=== PATIENT | female | born 1940 | race Caucasian/White ===

== ENCOUNTER 2020-11-10 16:32 | Inpatient (IN) | payer MEDICARE ==
[~2020-11-10] VITALS: Ht 149.9 cm; Wt 40.4 kg
[~2020-11-10 16:32] MED LIST: ATENOLOL25 MG PO; LUNESTA1 MG PO; METRONIDAZOLE250 MG PO; PRILOSEC20 MG PO; PROMETHAZINE12.5 M1 PO; PROZAC PO; WELLBUTRIN PO
[2020-11-10 17:11] LABS: BASOPHILS # (AUTO) 0.1 (0.0-0.1); BASOPHILS % 0.5 % (0.0-1.0); EOSINOPHILS # (AUTO) 0.6 (0.0-0.4); EOSINOPHILS % 5.3 % (0.0-6.0); HEMATOCRIT 34.3 % (34.2-44.1); HEMOGLOBIN 11.3 g/dL (12.0-16.0); LYMPHOCYTES # (AUTO) 0.9 (1.0-3.2); LYMPHOCYTES % 8.3 % (18.0-39.1); MEAN CORPUSCULAR HEMOGLOBIN 28.6 pg (28-32); MEAN CORPUSCULAR HGB CONC 32.9 g/dL (31-35); MEAN CORPUSCULAR VOLUME 86.8 fL (81-99); MONOCYTES % 8.7 % (4.4-11.3); NEUTROPHILS # (AUTO) 8.6 (2.1-6.9); NEUTROPHILS % 76.7 % (38.7-80.0); PLATELET COUNT 569 x10e3/uL (140-360); RED BLOOD COUNT 3.95 x10e6/uL (3.6-5.1); RED CELL DISTRIBUTION WIDTH 13.3 % (11.7-14.4)
[2020-11-10 18:30] LABS: ALBUMIN 2.5 g/dL (3.5-5.0); BILIRUBIN,DIRECT 0.2 mg/dL (0.0-0.5)
[2020-11-10 18:35] LABS: ANION GAP 14.5 mmol/L (8-16); CALCIUM 7.9 mg/dL (8.4-10.2); CREATININE, SERUM 0.6 mg/dL (0.57-1.11); POTASSIUM 4.5 mmol/L (3.5-5.1)
[2020-11-10] MEDS ORDERED: SODIUM CHLORIDE 0.9% 50ML 50 ML ONE (19:27)
[2020-11-10] MEDS ORDERED: IOPAMIDOL 370 MG/ML 200 ML INFUS..BTL INJ ONE (19:27)
[2020-11-10 20:31] LABS: COLOR,URINE YELLOW (YELLOW); LEUKOCYTE ESTERASE ,URINE NEGATIVE (NEGATIVE); NITRITE,URINE NEGATIVE (NEGATIVE)
[2020-11-10 20:32] LABS: CLARITY,URINE CLEAR (CLEAR); KETONES,URINE NEGATIVE (NEGATIVE); PROTEIN,URINE DIPSTICK NEGATIVE (NEGATIVE); URINE UROBILINOGEN 0.2 mg/dL (0.2 - 1)
[2020-11-10 20:44] LABS: EPITHELIAL CELLS,URINE RARE /LPF; RBC,URINE 0-5 /HPF (0-5)
[2020-11-10] MEDS ORDERED: DOXYCYCLINE HY100 MG PO (20:53)
[2020-11-10] MEDS ORDERED: CEFTRIAXONE 1 GM in SODIUM CHLORIDE 0.9% 50ML 50 ML IV ONE (21:45)
[2020-11-10] MEDS ORDERED: METHYLPREDNISOLONE SOD SUCC 125 MG/2ML VIAL IV ONE (21:45)
[2020-11-10 22:00] LABS: CREATINE KINASE MB 2.8 ng/mL (0-5.0)
[2020-11-10] MEDS: ALBUTEROL/IPRATROPIUM 3 ML NEB NEB SCH (22:00)
[2020-11-11] VITALS (11 sets, daily range): BP systolic 136–184; BP diastolic 75–101
[2020-11-11] MEDS: ALBUTEROL/IPRATROPIUM 3 ML NEB NEB SCH ×2 (01:26→08:35)
[2020-11-11] MEDS ORDERED: LORAZEPAM INJ 2 MG/ML VIAL IV PRN ×2 (05:45→10:45)
[2020-11-11 07:59] LABS: BASOPHILS # (AUTO) 0.1 (0.0-0.1); BASOPHILS % 0.4 % (0.0-1.0); EOSINOPHILS # (AUTO) 0.3 (0.0-0.4); EOSINOPHILS % 1.9 % (0.0-6.0); HEMATOCRIT 33.5 % (34.2-44.1); HEMOGLOBIN 11.1 g/dL (12.0-16.0); LYMPHOCYTES # (AUTO) 0.8 (1.0-3.2); LYMPHOCYTES % 6.1 % (18.0-39.1); MEAN CORPUSCULAR HEMOGLOBIN 28.6 pg (28-32); MEAN CORPUSCULAR HGB CONC 33.1 g/dL (31-35); MEAN CORPUSCULAR VOLUME 86.3 fL (81-99); MONOCYTES # (AUTO) 1.2 (0.2-0.8); MONOCYTES % 8.6 % (4.4-11.3); NEUTROPHILS # (AUTO) 11.1 (2.1-6.9); NEUTROPHILS % 82.5 % (38.7-80.0); PLATELET COUNT 613 x10e3/uL (140-360); RED BLOOD COUNT 3.88 x10e6/uL (3.6-5.1); RED CELL DISTRIBUTION WIDTH 13.2 % (11.7-14.4)
[2020-11-11 08:21] LABS: ALBUMIN 2.6 g/dL (3.5-5.0); ALBUMIN/GLOBULIN RATIO 0.8 (0.8-2.0); CALCIUM 8.9 mg/dL (8.4-10.2); CREATININE, SERUM 0.55 mg/dL (0.57-1.11)
[2020-11-11 08:29] LABS: CREATINE KINASE MB 2.9 ng/mL (0-5.0)
[2020-11-11 08:44] LABS: POTASSIUM 3.6 mmol/L (3.5-5.1)
[2020-11-11 08:47] LABS: ANION GAP 14.6 mmol/L (8-16)
[2020-11-11] MEDS ORDERED: POLYETHYLENE GLYCOL 3350 17 GM PACK PO PRN (11:30)
[2020-11-11] MEDS ORDERED: ONDANSETRON HCL INJ 2MG/ML 2ML 2 MG/ML VIAL IV PRN (11:30)
[2020-11-11] MEDS ORDERED: CEFTRIAXONE 1 GM in SODIUM CHLORIDE 0.9% 50ML 50 ML IV SCH (11:45)
[2020-11-11] MEDS ORDERED: PIPERACILLIN/TAZOBACTAM 3.375 GM in SODIUM CHLORIDE 0.9% 50ML 50 ML IV SCH (12:00)
[2020-11-11] MEDS ORDERED: SODIUM CHLORIDE 0.9% 250ML 250 ML ONE (12:04)
[2020-11-11] MEDS: ALBUTEROL/IPRATROPIUM 3 ML NEB NEB PRN ×2 (13:15→20:00)
[2020-11-11] MEDS ORDERED: Vancomycin IV 750 MG in SODIUM CHLORIDE 0.9% 250ML 150 ML IV SCH (14:00)
[2020-11-11] MEDS: CEFEPIME 1 GM in SODIUM CHLORIDE 0.9% 50ML 50 ML IV SCH ×2 (14:00→22:37)
[2020-11-11 15:19] LABS: CREATINE KINASE MB 3.4 ng/mL (0-5.0)
[2020-11-11] MEDS: Vancomycin IV 750 MG in SODIUM CHLORIDE 0.9% 250ML 150 ML IV SCH (15:30)
[2020-11-11] MEDS: SODIUM CHLORIDE 0.9% 1000ML 1,000 ML IV SCH (15:30)
[2020-11-11] MEDS: DOCUSATE SODIUM 100 MG CAP PO SCH (15:30)
[2020-11-11] MEDS ORDERED: PROBIOTIC & AC1 EACH PO (17:16)
[2020-11-11] MEDS ORDERED: MYRBETRIQ25 MG (17:18)
[2020-11-11] MEDS ORDERED: NEURONTIN100 MG PO (17:19)
[2020-11-11] MEDS ORDERED: MULTI-VITAMIN1 EACH PO (17:20)
[2020-11-11] MEDS ORDERED: BUPROPION HCL150 M2 PO (17:22)
[2020-11-11] MEDS ORDERED: CALCIUM MAGNES1 EAC2 (17:24)
[2020-11-11] MEDS ORDERED: AMIODARONE HCL100 MG PO (17:26)
[2020-11-11] MEDS ORDERED: BENZONATATE100 MG PO (17:26)
[2020-11-11] MEDS ORDERED: CETIRIZINE HCL10 M1 (17:27)
[2020-11-11] MEDS: QUETIAPINE FUMARATE 25 MG TAB PO SCH (22:00)
[2020-11-12] VITALS (7 sets, daily range): BP systolic 135–167; BP diastolic 60–91
[2020-11-12] MEDS: Vancomycin IV 750 MG in SODIUM CHLORIDE 0.9% 250ML 150 ML IV SCH ×2 (02:10→16:27)
[2020-11-12] MEDS: ALBUTEROL/IPRATROPIUM 3 ML NEB NEB PRN ×4 (03:02→19:35)
[2020-11-12 05:17] LABS: BASOPHILS # (AUTO) 0.1 (0.0-0.1); BASOPHILS % 0.4 % (0.0-1.0); EOSINOPHILS # (AUTO) 0.1 (0.0-0.4); HEMATOCRIT 32.1 % (34.2-44.1); HEMOGLOBIN 10.6 g/dL (12.0-16.0); LYMPHOCYTES # (AUTO) 0.9 (1.0-3.2); LYMPHOCYTES % 7.4 % (18.0-39.1); MEAN CORPUSCULAR HEMOGLOBIN 28.5 pg (28-32); MEAN CORPUSCULAR VOLUME 86.3 fL (81-99); MONOCYTES # (AUTO) 1.3 (0.2-0.8); MONOCYTES % 10.7 % (4.4-11.3); NEUTROPHILS # (AUTO) 9.8 (2.1-6.9); PLATELET COUNT 536 x10e3/uL (140-360); RED BLOOD COUNT 3.72 x10e6/uL (3.6-5.1); RED CELL DISTRIBUTION WIDTH 13.1 % (11.7-14.4)
[2020-11-12] MEDS: CEFEPIME 1 GM in SODIUM CHLORIDE 0.9% 50ML 50 ML IV SCH ×3 (05:41→22:01)
[2020-11-12 05:47] LABS: ALBUMIN 2.4 g/dL (3.5-5.0); ALBUMIN/GLOBULIN RATIO 0.8 (0.8-2.0); ANION GAP 13.9 mmol/L (8-16); CALCIUM 8.3 mg/dL (8.4-10.2); CHOL/HDL RATIO 2.7 (3.0-3.6); CREATININE, SERUM 0.47 mg/dL (0.57-1.11); MAGNESIUM 1.5 MG/DL (1.3-2.1); PHOSPHORUS 2.6 MG/DL (2.3-4.7)
[2020-11-12 05:48] LABS: POTASSIUM 2.9 mmol/L (3.5-5.1)
[2020-11-12 06:09] LABS: THYROID STIMULATING HORMONE 1.613 uIU/mL (0.350-4.940)
[2020-11-12] MEDS: OMEPRAZOLE 20 MG CAP PO SCH (09:00)
[2020-11-12] MEDS: DOCUSATE SODIUM 100 MG CAP PO SCH ×2 (09:00→17:00)
[2020-11-12] MEDS: POTASSIUM CHLORIDE 10MEQ/100ML 100 ML IV SCH ×4 (09:03→13:59)
[2020-11-12] MEDS: HYDRALAZINE HCL 20 MG/ML VIAL IV PRN (13:01)
[2020-11-12] MEDS: SODIUM CHLORIDE 0.9% 1000ML 1,000 ML IV SCH (18:55)
[2020-11-12] MEDS: QUETIAPINE FUMARATE 25 MG TAB PO SCH (22:01)
[2020-11-13] VITALS (8 sets, daily range): BP systolic 128–162; BP diastolic 59–95
[2020-11-13] MEDS: Vancomycin IV 750 MG in SODIUM CHLORIDE 0.9% 250ML 150 ML IV SCH ×2 (03:19→13:45)
[2020-11-13] MEDS: CEFEPIME 1 GM in SODIUM CHLORIDE 0.9% 50ML 50 ML IV SCH ×3 (05:28→21:02)
[2020-11-13] MEDS: ALBUTEROL/IPRATROPIUM 3 ML NEB NEB PRN ×3 (07:11→19:45)
[2020-11-13] MEDS: DOCUSATE SODIUM 100 MG CAP PO SCH ×2 (08:17→16:25)
[2020-11-13] MEDS: OMEPRAZOLE 20 MG CAP PO SCH (08:17)
[2020-11-13] MEDS: HYDRALAZINE HCL 20 MG/ML VIAL IV PRN (08:18)
[2020-11-13] MEDS: SODIUM CHLORIDE 0.9% 1000ML 1,000 ML IV SCH (16:25)
[2020-11-13] MEDS: ACETAMINOPHEN 325 MG TAB PO PRN (16:30)
[2020-11-13] MEDS: QUETIAPINE FUMARATE 25 MG TAB PO SCH (21:01)
[2020-11-14] VITALS (9 sets, daily range): BP systolic 101–165; BP diastolic 60–77
[2020-11-14] MEDS: Vancomycin IV 750 MG in SODIUM CHLORIDE 0.9% 250ML 150 ML IV SCH ×2 (02:20→14:00)
[2020-11-14] MEDS: CEFEPIME 1 GM in SODIUM CHLORIDE 0.9% 50ML 50 ML IV SCH ×3 (05:05→22:18)
[2020-11-14 05:29] LABS: BASOPHILS % 0.4 % (0.0-1.0); EOSINOPHILS # (AUTO) 0.8 (0.0-0.4); EOSINOPHILS % 7.4 % (0.0-6.0); HEMATOCRIT 30.1 % (34.2-44.1); HEMOGLOBIN 10.4 g/dL (12.0-16.0); LYMPHOCYTES # (AUTO) 0.4 (1.0-3.2); LYMPHOCYTES % 3.9 % (18.0-39.1); MEAN CORPUSCULAR HEMOGLOBIN 29.5 pg (28-32); MEAN CORPUSCULAR HGB CONC 34.6 g/dL (31-35); MEAN CORPUSCULAR VOLUME 85.5 fL (81-99); MONOCYTES % 8.9 % (4.4-11.3); NEUTROPHILS # (AUTO) 8.6 (2.1-6.9); NEUTROPHILS % 78.8 % (38.7-80.0); PLATELET COUNT 507 x10e3/uL (140-360); RED BLOOD COUNT 3.52 x10e6/uL (3.6-5.1); RED CELL DISTRIBUTION WIDTH 13.3 % (11.7-14.4)
[2020-11-14 06:06] LABS: ALBUMIN/GLOBULIN RATIO 0.7 (0.8-2.0); ANION GAP 17.7 mmol/L (8-16); CALCIUM 8.1 mg/dL (8.4-10.2); CREATININE, SERUM 0.45 mg/dL (0.57-1.11)
[2020-11-14 06:12] LABS: POTASSIUM 2.7 mmol/L (3.5-5.1)
[2020-11-14] MEDS: ALBUTEROL/IPRATROPIUM 3 ML NEB NEB PRN ×3 (07:28→19:36)
[2020-11-14] MEDS: SODIUM CHLORIDE 0.9% 1000ML 1,000 ML IV SCH (08:00)
[2020-11-14] MEDS: OMEPRAZOLE 20 MG CAP PO SCH (09:00)
[2020-11-14] MEDS: DOCUSATE SODIUM 100 MG CAP PO SCH ×2 (09:00→16:47)
[2020-11-14] MEDS ORDERED: POTASSIUM CHLORIDE 10MEQ EA PO ONE (09:00)
[2020-11-14] MEDS: BENZONATATE 100 MG CAP PO PRN (16:48)
[2020-11-14] MEDS: AMLODIPINE BESYLATE 5 MG TAB PO SCH (21:52)
[2020-11-14] MEDS: QUETIAPINE FUMARATE 25 MG TAB PO SCH (21:52)
[2020-11-15] VITALS (9 sets, daily range): BP systolic 104–155; BP diastolic 60–91
[2020-11-15] MEDS: Vancomycin IV 750 MG in SODIUM CHLORIDE 0.9% 250ML 150 ML IV SCH ×2 (02:23→14:00)
[2020-11-15] MEDS: ALBUTEROL/IPRATROPIUM 3 ML NEB NEB PRN ×3 (03:10→19:23)
[2020-11-15] MEDS: CEFEPIME 1 GM in SODIUM CHLORIDE 0.9% 50ML 50 ML IV SCH ×3 (06:14→20:40)
[2020-11-15 06:26] LABS: BASOPHILS # (AUTO) 0.1 (0.0-0.1); BASOPHILS % 0.4 % (0.0-1.0); EOSINOPHILS # (AUTO) 0.8 (0.0-0.4); EOSINOPHILS % 5.9 % (0.0-6.0); HEMATOCRIT 33.5 % (34.2-44.1); HEMOGLOBIN 11.1 g/dL (12.0-16.0); LYMPHOCYTES # (AUTO) 0.7 (1.0-3.2); LYMPHOCYTES % 4.9 % (18.0-39.1); MEAN CORPUSCULAR HEMOGLOBIN 28.5 pg (28-32); MEAN CORPUSCULAR HGB CONC 33.1 g/dL (31-35); MEAN CORPUSCULAR VOLUME 85.9 fL (81-99); MONOCYTES # (AUTO) 1.1 (0.2-0.8); MONOCYTES % 8.4 % (4.4-11.3); NEUTROPHILS # (AUTO) 10.7 (2.1-6.9); NEUTROPHILS % 79.6 % (38.7-80.0); PLATELET COUNT 633 x10e3/uL (140-360); RED CELL DISTRIBUTION WIDTH 13.2 % (11.7-14.4)
[2020-11-15 06:46] LABS: ALBUMIN/GLOBULIN RATIO 0.7 (0.8-2.0); ANION GAP 11.7 mmol/L (8-16); CALCIUM 7.9 mg/dL (8.4-10.2); CREATININE, SERUM 0.46 mg/dL (0.57-1.11)
[2020-11-15 06:52] LABS: POTASSIUM 2.7 mmol/L (3.5-5.1)
[2020-11-15] MEDS ORDERED: POTASSIUM CHLORIDE 20 MEQ TAB CR PO STA (08:23)
[2020-11-15] MEDS ORDERED: POTASSIUM CHLORIDE 20MEQ/100ML 100 ML IV ONE (08:30)
[2020-11-15] MEDS: DOCUSATE SODIUM 100 MG CAP PO SCH ×2 (09:00→16:56)
[2020-11-15] MEDS: AMLODIPINE BESYLATE 5 MG TAB PO SCH (09:00)
[2020-11-15] MEDS: OMEPRAZOLE 20 MG CAP PO SCH (09:00)
[2020-11-15] MEDS ORDERED: MAGNESIUM SULFATE 2GM/50ML 50 ML IV ONE (11:00)
[2020-11-15] MEDS: SODIUM CHLORIDE 0.9% 1000ML 1,000 ML IV SCH (16:56)
[2020-11-15] MEDS: QUETIAPINE FUMARATE 25 MG TAB PO SCH (20:40)
[2020-11-16] VITALS (7 sets, daily range): BP systolic 102–150; BP diastolic 68–88
[2020-11-16] MEDS: Vancomycin IV 750 MG in SODIUM CHLORIDE 0.9% 250ML 150 ML IV SCH ×2 (01:55→14:00)
[2020-11-16] MEDS: CEFEPIME 1 GM in SODIUM CHLORIDE 0.9% 50ML 50 ML IV SCH ×3 (05:38→22:07)
[2020-11-16 06:04] LABS: BASOPHILS # (AUTO) 0.1 (0.0-0.1); BASOPHILS % 0.4 % (0.0-1.0); EOSINOPHILS # (AUTO) 1.2 (0.0-0.4); EOSINOPHILS % 8.6 % (0.0-6.0); HEMATOCRIT 32.2 % (34.2-44.1); HEMOGLOBIN 10.6 g/dL (12.0-16.0); LYMPHOCYTES # (AUTO) 0.9 (1.0-3.2); LYMPHOCYTES % 6.3 % (18.0-39.1); MEAN CORPUSCULAR HEMOGLOBIN 28.3 pg (28-32); MEAN CORPUSCULAR HGB CONC 32.9 g/dL (31-35); MEAN CORPUSCULAR VOLUME 85.9 fL (81-99); MONOCYTES # (AUTO) 0.9 (0.2-0.8); MONOCYTES % 6.7 % (4.4-11.3); NEUTROPHILS # (AUTO) 10.8 (2.1-6.9); NEUTROPHILS % 77.4 % (38.7-80.0); PLATELET COUNT 570 x10e3/uL (140-360); RED BLOOD COUNT 3.75 x10e6/uL (3.6-5.1); RED CELL DISTRIBUTION WIDTH 13.1 % (11.7-14.4)
[2020-11-16 06:52] LABS: ANION GAP 12.3 mmol/L (8-16); CALCIUM 7.8 mg/dL (8.4-10.2); CREATININE, SERUM 0.47 mg/dL (0.57-1.11); MAGNESIUM 1.8 MG/DL (1.3-2.1); POTASSIUM 3.3 mmol/L (3.5-5.1)
[2020-11-16] MEDS: ALBUTEROL/IPRATROPIUM 3 ML NEB NEB PRN ×3 (08:27→19:47)
[2020-11-16] MEDS: POTASSIUM CHLORIDE 20 MEQ TAB CR PO ONE ×2 (09:00→12:45)
[2020-11-16] MEDS: SODIUM CHLORIDE 1 GM TAB PO SCH ×2 (12:45→17:00)
[2020-11-16] MEDS: OMEPRAZOLE 20 MG CAP PO SCH (12:45)
[2020-11-16] MEDS: DOCUSATE SODIUM 100 MG CAP PO SCH ×2 (12:45→16:50)
[2020-11-16] MEDS: AMLODIPINE BESYLATE 5 MG TAB PO SCH (12:45)
[2020-11-16] MEDS: SODIUM CHLORIDE 0.9% 1000ML 1,000 ML IV SCH (13:09)
[2020-11-16] MEDS ORDERED: METHYLPREDNISOLONE SOD SUCC 125 MG/2ML VIAL IV ONE (13:45)
[2020-11-16] MEDS ORDERED: SODIUM PHOSPHATE IN 0.9 % NACL 15 MMOL in SODIUM CHLORIDE 0.9% 250ML 250 ML IV ONE ×2 (14:00)
[2020-11-16] MEDS: TRAMADOL HCL 50 MG TAB PO PRN (15:32)
[2020-11-16] MEDS: METOPROLOL TARTRATE 25 MG TAB PO SCH (21:16)
[2020-11-17] VITALS (9 sets, daily range): BP systolic 112–137; BP diastolic 60–87
[2020-11-17] MEDS: Vancomycin IV 750 MG in SODIUM CHLORIDE 0.9% 250ML 150 ML IV SCH ×2 (02:43→14:12)
[2020-11-17] MEDS: CEFEPIME 1 GM in SODIUM CHLORIDE 0.9% 50ML 50 ML IV SCH ×3 (06:30→22:00)
[2020-11-17] MEDS: ALBUTEROL/IPRATROPIUM 3 ML NEB NEB PRN ×3 (07:15→20:45)
[2020-11-17] MEDS ORDERED: MAGNESIUM SULFATE 2GM/50ML IV ONE (07:45)
[2020-11-17] MEDS ORDERED: POTASSIUM CHLORIDE 10MEQ/100ML 300 ML IV ONE (08:30)
[2020-11-17 08:35] LABS: ANION GAP 12.8 mmol/L (8-16); CALCIUM 8.4 mg/dL (8.4-10.2); CREATININE, SERUM 0.5 mg/dL (0.57-1.11); POTASSIUM 3.8 mmol/L (3.5-5.1)
[2020-11-17] MEDS: METOPROLOL TARTRATE 25 MG TAB PO SCH ×2 (08:48→20:27)
[2020-11-17] MEDS: DOCUSATE SODIUM 100 MG CAP PO SCH ×2 (08:48→16:58)
[2020-11-17] MEDS: OMEPRAZOLE 20 MG CAP PO SCH (08:48)
[2020-11-17] MEDS: SODIUM CHLORIDE 1 GM TAB PO SCH ×2 (08:48→16:58)
[2020-11-17] MEDS ORDERED: MAGNESIUM SULFATE 2GM/50ML 50 ML IV ONE (11:30)
[2020-11-18] VITALS (8 sets, daily range): BP systolic 121–146; BP diastolic 58–97
[2020-11-18] MEDS: Vancomycin IV 750 MG in SODIUM CHLORIDE 0.9% 250ML 150 ML IV SCH ×2 (02:00→15:08)
[2020-11-18] MEDS: CEFEPIME 1 GM in SODIUM CHLORIDE 0.9% 50ML 50 ML IV SCH ×3 (06:00→22:00)
[2020-11-18] MEDS: ALBUTEROL/IPRATROPIUM 3 ML NEB NEB PRN ×4 (07:12→23:00)
[2020-11-18 07:54] LABS: BASOPHILS % 0.2 % (0.0-1.0); EOSINOPHILS % 0.2 % (0.0-6.0); HEMATOCRIT 30.1 % (34.2-44.1); HEMOGLOBIN 10.6 g/dL (12.0-16.0); LYMPHOCYTES # (AUTO) 0.8 (1.0-3.2); LYMPHOCYTES % 5.1 % (18.0-39.1); MEAN CORPUSCULAR HEMOGLOBIN 30.8 pg (28-32); MEAN CORPUSCULAR HGB CONC 35.2 g/dL (31-35); MEAN CORPUSCULAR VOLUME 87.5 fL (81-99); MONOCYTES % 5.8 % (4.4-11.3); NEUTROPHILS # (AUTO) 14.5 (2.1-6.9); NEUTROPHILS % 88.2 % (38.7-80.0); PLATELET COUNT 474 x10e3/uL (140-360); RED BLOOD COUNT 3.44 x10e6/uL (3.6-5.1); RED CELL DISTRIBUTION WIDTH 14.2 % (11.7-14.4)
[2020-11-18 08:06] LABS: ANION GAP 12.1 mmol/L (8-16); CALCIUM 7.9 mg/dL (8.4-10.2); CREATININE, SERUM 0.5 mg/dL (0.57-1.11); POTASSIUM 3.1 mmol/L (3.5-5.1)
[2020-11-18] MEDS ORDERED: MEMANTINE 10 MG TAB PO SCH (09:00)
[2020-11-18] MEDS ORDERED: TOLTERODINE TARTRATE 4 MG CAPCR PO SCH (09:00)
[2020-11-18] MEDS: METOPROLOL TARTRATE 25 MG TAB PO SCH ×2 (09:00→20:26)
[2020-11-18] MEDS: DOCUSATE SODIUM 100 MG CAP PO SCH ×2 (09:38→17:17)
[2020-11-18] MEDS: OMEPRAZOLE 20 MG CAP PO SCH (09:39)
[2020-11-18] MEDS: SODIUM CHLORIDE 1 GM TAB PO SCH ×2 (09:39→17:17)
[2020-11-18] MEDS: HYDRALAZINE HCL 20 MG/ML VIAL IV PRN (09:40)
[2020-11-18] MEDS ORDERED: POTASSIUM CHLORIDE 20 MEQ TAB CR PO NR (11:56)
[2020-11-18] MEDS: METHYLPREDNISOLONE SOD SUCC 40 MG/ML VIAL 1ML IV SCH (20:26)
[2020-11-19] VITALS (8 sets, daily range): BP systolic 90–135; BP diastolic 51–94
[2020-11-19] MEDS: Vancomycin IV 750 MG in SODIUM CHLORIDE 0.9% 250ML 150 ML IV SCH ×2 (01:49→15:45)
[2020-11-19 05:37] LABS: BASOPHILS % 0.1 % (0.0-1.0); HEMATOCRIT 33.1 % (34.2-44.1); HEMOGLOBIN 10.7 g/dL (12.0-16.0); LYMPHOCYTES # (AUTO) 0.4 (1.0-3.2); LYMPHOCYTES % 2.7 % (18.0-39.1); MEAN CORPUSCULAR HEMOGLOBIN 28.2 pg (28-32); MEAN CORPUSCULAR HGB CONC 32.3 g/dL (31-35); MEAN CORPUSCULAR VOLUME 87.3 fL (81-99); MONOCYTES # (AUTO) 0.3 (0.2-0.8); NEUTROPHILS # (AUTO) 13.6 (2.1-6.9); NEUTROPHILS % 94.6 % (38.7-80.0); PLATELET COUNT 600 x10e3/uL (140-360); RED BLOOD COUNT 3.79 x10e6/uL (3.6-5.1); RED CELL DISTRIBUTION WIDTH 13.7 % (11.7-14.4)
[2020-11-19 05:56] LABS: ALBUMIN 2.2 g/dL (3.5-5.0); ALBUMIN/GLOBULIN RATIO 0.8 (0.8-2.0); ANION GAP 14.3 mmol/L (8-16); CALCIUM 8.1 mg/dL (8.4-10.2); CREATININE, SERUM 0.49 mg/dL (0.57-1.11); POTASSIUM 3.3 mmol/L (3.5-5.1)
[2020-11-19] MEDS: CEFEPIME 1 GM in SODIUM CHLORIDE 0.9% 50ML 50 ML IV SCH ×3 (06:00→22:09)
[2020-11-19] MEDS: ALBUTEROL/IPRATROPIUM 3 ML NEB NEB PRN ×4 (07:10→19:29)
[2020-11-19] MEDS: METOPROLOL TARTRATE 25 MG TAB PO SCH ×2 (09:33→20:50)
[2020-11-19] MEDS: OMEPRAZOLE 20 MG CAP PO SCH (09:33)
[2020-11-19] MEDS: DOCUSATE SODIUM 100 MG CAP PO SCH ×2 (09:33→17:20)
[2020-11-19] MEDS: METHYLPREDNISOLONE SOD SUCC 40 MG/ML VIAL 1ML IV SCH ×2 (09:33→20:50)
[2020-11-19] MEDS: SODIUM CHLORIDE 1 GM TAB PO SCH ×2 (09:33→17:20)
[2020-11-19] MEDS ORDERED: POTASSIUM CHLORIDE 20 MEQ TAB CR PO ONE ×2 (09:45→10:45)
[2020-11-19] MEDS: ZOLPIDEM TARTRATE 5 MG TAB PO SCH (21:05)
[2020-11-20] VITALS (9 sets, daily range): BP systolic 121–144; BP diastolic 59–104
[2020-11-20] MEDS: Vancomycin IV 750 MG in SODIUM CHLORIDE 0.9% 250ML 150 ML IV SCH ×2 (01:42→14:00)
[2020-11-20 04:57] LABS: BASOPHILS % 0.1 % (0.0-1.0); HEMATOCRIT 31.8 % (34.2-44.1); HEMOGLOBIN 10.7 g/dL (12.0-16.0); LYMPHOCYTES # (AUTO) 0.6 (1.0-3.2); MEAN CORPUSCULAR HEMOGLOBIN 28.3 pg (28-32); MEAN CORPUSCULAR HGB CONC 33.6 g/dL (31-35); MEAN CORPUSCULAR VOLUME 84.1 fL (81-99); MONOCYTES # (AUTO) 0.7 (0.2-0.8); MONOCYTES % 3.4 % (4.4-11.3); NEUTROPHILS # (AUTO) 18.4 (2.1-6.9); NEUTROPHILS % 92.3 % (38.7-80.0); PLATELET COUNT 578 x10e3/uL (140-360); RED BLOOD COUNT 3.78 x10e6/uL (3.6-5.1); RED CELL DISTRIBUTION WIDTH 13.5 % (11.7-14.4)
[2020-11-20] MEDS: CEFEPIME 1 GM in SODIUM CHLORIDE 0.9% 50ML 50 ML IV SCH ×3 (05:24→21:36)
[2020-11-20 05:31] LABS: ALBUMIN/GLOBULIN RATIO 0.6 (0.8-2.0); ANION GAP 13.5 mmol/L (8-16); CALCIUM 8.3 mg/dL (8.4-10.2); CREATININE, SERUM 0.53 mg/dL (0.57-1.11); POTASSIUM 3.5 mmol/L (3.5-5.1)
[2020-11-20 05:55] LABS: MAGNESIUM 1.8 MG/DL (1.3-2.1); PHOSPHORUS 2.6 MG/DL (2.3-4.7)
[2020-11-20] MEDS: ALBUTEROL/IPRATROPIUM 3 ML NEB NEB PRN ×3 (07:02→19:33)
[2020-11-20] MEDS: METHYLPREDNISOLONE SOD SUCC 40 MG/ML VIAL 1ML IV SCH ×2 (09:00→20:28)
[2020-11-20] MEDS: METOPROLOL TARTRATE 25 MG TAB PO SCH ×2 (09:00→20:29)
[2020-11-20] MEDS: DOCUSATE SODIUM 100 MG CAP PO SCH ×2 (09:00→17:00)
[2020-11-20] MEDS: OMEPRAZOLE 20 MG CAP PO SCH (09:00)
[2020-11-20] MEDS ORDERED: KCL 20 MEQ PACKET/ ORAL SOLN NG ONE (11:30)
[2020-11-20] MEDS ORDERED: FUROSEMIDE INJ 10 MG/ML 2 ML VIAL IV ONE (11:30)
[2020-11-20] MEDS ORDERED: SODIUM CHLORIDE 0.9% 250ML 250 ML ONE (15:04)
[2020-11-20] MEDS: ZOLPIDEM TARTRATE 5 MG TAB PO SCH (20:28)
[2020-11-20] MEDS: TRAMADOL HCL 50 MG TAB PO PRN (21:36)
[2020-11-20] MEDS: BENZONATATE 100 MG CAP PO PRN (21:36)
[2020-11-21] VITALS (25 sets, daily range): BP systolic 85–159; BP diastolic 44–83
[2020-11-21] MEDS: Vancomycin IV 750 MG in SODIUM CHLORIDE 0.9% 250ML 150 ML IV SCH ×2 (01:22→13:34)
[2020-11-21] MEDS ORDERED: FUROSEMIDE INJ 10 MG/ML 4 ML VIAL IV ONE ×2 (03:45→16:00)
[2020-11-21 04:13] LABS: BASOPHILS % 0.2 % (0.0-1.0); HEMATOCRIT 33.3 % (34.2-44.1); HEMOGLOBIN 10.8 g/dL (12.0-16.0); LYMPHOCYTES # (AUTO) 0.5 (1.0-3.2); LYMPHOCYTES % 2.3 % (18.0-39.1); MEAN CORPUSCULAR HEMOGLOBIN 28.1 pg (28-32); MEAN CORPUSCULAR HGB CONC 32.4 g/dL (31-35); MEAN CORPUSCULAR VOLUME 86.5 fL (81-99); MONOCYTES # (AUTO) 0.6 (0.2-0.8); MONOCYTES % 2.9 % (4.4-11.3); NEUTROPHILS % 93.8 % (38.7-80.0); PLATELET COUNT 577 x10e3/uL (140-360); RED BLOOD COUNT 3.85 x10e6/uL (3.6-5.1); RED CELL DISTRIBUTION WIDTH 13.4 % (11.7-14.4)
[2020-11-21 04:26] LABS: ANION GAP 13.7 mmol/L (8-16); CALCIUM 8.2 mg/dL (8.4-10.2); CREATININE, SERUM 0.55 mg/dL (0.57-1.11); POTASSIUM 3.7 mmol/L (3.5-5.1)
[2020-11-21] MEDS: CEFEPIME 1 GM in SODIUM CHLORIDE 0.9% 50ML 50 ML IV SCH (06:11)
[2020-11-21] MEDS: METHYLPREDNISOLONE SOD SUCC 40 MG/ML VIAL 1ML IV SCH (08:38)
[2020-11-21] MEDS: DOCUSATE SODIUM 100 MG CAP PO SCH ×2 (08:38→15:09)
[2020-11-21] MEDS: POLYETHYLENE GLYCOL 3350 17 GM PACK PO SCH (08:39)
[2020-11-21] MEDS: OMEPRAZOLE 20 MG CAP PO SCH (08:39)
[2020-11-21] MEDS: METOPROLOL TARTRATE 25 MG TAB PO SCH ×2 (08:39→20:40)
[2020-11-21] MEDS: BENZONATATE 100 MG CAP PO PRN (08:40)
[2020-11-21] MEDS ORDERED: POTASSIUM CHLORIDE 20MEQ/15ML UDC PO ONE (10:00)
[2020-11-21] MEDS ORDERED: KCL 20 MEQ PACKET/ ORAL SOLN PO ONE (11:00)
[2020-11-21] MEDS ORDERED: MAGNESIUM SULFATE 2GM/50ML 50 ML IV ONE (11:00)
[2020-11-21] MEDS: DEXMEDETOMIDINE 400MCG/NS100ML 100 ML IV PRN (11:40)
[2020-11-21] MEDS: NOREPINEPHRINE 8 MG/D5W 250 ML 250 ML IV SCH (14:39)
[2020-11-21] MEDS: ZOLPIDEM TARTRATE 5 MG TAB PO SCH (20:40)
[2020-11-22] VITALS (26 sets, daily range): BP systolic 84–142; BP diastolic 43–73
[2020-11-22] MEDS: Vancomycin IV 750 MG in SODIUM CHLORIDE 0.9% 250ML 150 ML IV SCH ×2 (02:00→14:19)
[2020-11-22] MEDS: METHYLPREDNISOLONE SOD SUCC 40 MG/ML VIAL 1ML IV SCH (08:28)
[2020-11-22] MEDS: DOCUSATE SODIUM 100 MG CAP PO SCH ×2 (09:01→16:05)
[2020-11-22] MEDS: POLYETHYLENE GLYCOL 3350 17 GM PACK PO SCH (09:03)
[2020-11-22] MEDS: METOPROLOL TARTRATE 25 MG TAB PO SCH ×2 (09:03→21:00)
[2020-11-22] MEDS: OMEPRAZOLE 20 MG CAP PO SCH (09:03)
[2020-11-22 09:24] LABS: BASOPHILS % 0.2 % (0.0-1.0); EOSINOPHILS % 0.1 % (0.0-6.0); HEMATOCRIT 31.6 % (34.2-44.1); HEMOGLOBIN 10.1 g/dL (12.0-16.0); LYMPHOCYTES % 6.4 % (18.0-39.1); MEAN CORPUSCULAR VOLUME 87.5 fL (81-99); MONOCYTES % 6.1 % (4.4-11.3); NEUTROPHILS # (AUTO) 13.9 (2.1-6.9); NEUTROPHILS % 86.5 % (38.7-80.0); PLATELET COUNT 448 x10e3/uL (140-360); RED BLOOD COUNT 3.61 x10e6/uL (3.6-5.1); RED CELL DISTRIBUTION WIDTH 13.3 % (11.7-14.4)
[2020-11-22] MEDS ORDERED: SODIUM CHLORIDE 0.9% 500ML 500 ML ONE (09:27)
[2020-11-22 09:43] LABS: ALBUMIN 1.9 g/dL (3.5-5.0); ALBUMIN/GLOBULIN RATIO 0.7 (0.8-2.0); ANION GAP 11.3 mmol/L (8-16); CALCIUM 7.9 mg/dL (8.4-10.2); CREATININE, SERUM 0.52 mg/dL (0.57-1.11); POTASSIUM 3.3 mmol/L (3.5-5.1)
[2020-11-22] MEDS ORDERED: MAGNESIUM SULFATE 2GM/50ML 50 ML IV ONE (11:30)
[2020-11-22] MEDS ORDERED: ZIPRASIDONE 20 MG VIAL IM ONE (11:30)
[2020-11-22] MEDS ORDERED: POTASSIUM CHLORIDE 20MEQ/100ML 200 ML IV ONE (11:45)
[2020-11-22] MEDS: NOREPINEPHRINE 8 MG/D5W 250 ML 250 ML IV SCH (14:15)
[2020-11-22] MEDS: ZOLPIDEM TARTRATE 5 MG TAB PO SCH (22:00)
[2020-11-22] MEDS: TRIMETHOPRIM/SULFAMETHOXAZOLE 160-800 MG TAB PO SCH (22:00)
[2020-11-23] VITALS (25 sets, daily range): BP systolic 98–137; BP diastolic 44–80
[2020-11-23] MEDS: ALBUTEROL/IPRATROPIUM 3 ML NEB NEB PRN (00:01)
[2020-11-23 05:27] LABS: BASOPHILS % 0.1 % (0.0-1.0); EOSINOPHILS % 0.1 % (0.0-6.0); HEMATOCRIT 28.4 % (34.2-44.1); HEMOGLOBIN 9.1 g/dL (12.0-16.0); LYMPHOCYTES # (AUTO) 0.8 (1.0-3.2); LYMPHOCYTES % 4.8 % (18.0-39.1); MEAN CORPUSCULAR HEMOGLOBIN 28.2 pg (28-32); MEAN CORPUSCULAR VOLUME 87.9 fL (81-99); MONOCYTES % 6.1 % (4.4-11.3); NEUTROPHILS # (AUTO) 14.8 (2.1-6.9); PLATELET COUNT 446 x10e3/uL (140-360); RED BLOOD COUNT 3.23 x10e6/uL (3.6-5.1); RED CELL DISTRIBUTION WIDTH 13.4 % (11.7-14.4)
[2020-11-23 05:38] LABS: ALBUMIN 1.9 g/dL (3.5-5.0); ALBUMIN/GLOBULIN RATIO 0.8 (0.8-2.0); ANION GAP 11.9 mmol/L (8-16); CREATININE, SERUM 0.5 mg/dL (0.57-1.11); POTASSIUM 3.9 mmol/L (3.5-5.1)
[2020-11-23] MEDS: DEXMEDETOMIDINE 400MCG/NS100ML 100 ML IV PRN (09:02)
[2020-11-23] MEDS: OMEPRAZOLE 20 MG CAP PO SCH (09:51)
[2020-11-23] MEDS: FLUCONAZOLE 100 MG TAB PO SCH (09:51)
[2020-11-23] MEDS: POLYETHYLENE GLYCOL 3350 17 GM PACK PO SCH (09:51)
[2020-11-23] MEDS: DOCUSATE SODIUM 100 MG CAP PO SCH ×2 (09:51→18:05)
[2020-11-23] MEDS: METHYLPREDNISOLONE SOD SUCC 40 MG/ML VIAL 1ML IV SCH (09:51)
[2020-11-23] MEDS: METOPROLOL TARTRATE 25 MG TAB PO SCH ×2 (10:12→21:00)
[2020-11-23] MEDS: BENZONATATE 100 MG CAP PO PRN (12:20)
[2020-11-23] MEDS: TRIMETHOPRIM/SULFAMETHOXAZOLE 160-800 MG TAB PO SCH ×2 (12:20→21:00)
[2020-11-23] MEDS: NOREPINEPHRINE 8 MG/D5W 250 ML 250 ML IV SCH (14:15)
[2020-11-23] MEDS: ZOLPIDEM TARTRATE 5 MG TAB PO SCH (21:00)
[2020-11-23] MEDS: ENOXAPARIN 30 MG/0.3 ML SYR SC SCH (22:19)
[2020-11-24] VITALS (25 sets, daily range): BP systolic 100–150; BP diastolic 51–137
[2020-11-24] MEDS: DEXMEDETOMIDINE 400MCG/NS100ML 100 ML IV PRN (03:18)
[2020-11-24 05:18] LABS: BASOPHILS % 0.1 % (0.0-1.0); HEMATOCRIT 28.9 % (34.2-44.1); HEMOGLOBIN 9.4 g/dL (12.0-16.0); LYMPHOCYTES # (AUTO) 0.7 (1.0-3.2); LYMPHOCYTES % 4.5 % (18.0-39.1); MEAN CORPUSCULAR HEMOGLOBIN 28.2 pg (28-32); MEAN CORPUSCULAR HGB CONC 32.5 g/dL (31-35); MEAN CORPUSCULAR VOLUME 86.8 fL (81-99); MONOCYTES # (AUTO) 0.7 (0.2-0.8); MONOCYTES % 4.7 % (4.4-11.3); PLATELET COUNT 442 x10e3/uL (140-360); RED BLOOD COUNT 3.33 x10e6/uL (3.6-5.1); RED CELL DISTRIBUTION WIDTH 13.5 % (11.7-14.4)
[2020-11-24 05:43] LABS: ALBUMIN 1.9 g/dL (3.5-5.0); ALBUMIN/GLOBULIN RATIO 0.7 (0.8-2.0); ANION GAP 11.1 mmol/L (8-16); CALCIUM 8.2 mg/dL (8.4-10.2); CREATININE, SERUM 0.51 mg/dL (0.57-1.11); POTASSIUM 4.1 mmol/L (3.5-5.1)
[2020-11-24] MEDS: POLYETHYLENE GLYCOL 3350 17 GM PACK PO SCH (08:14)
[2020-11-24] MEDS: DOCUSATE SODIUM 100 MG CAP PO SCH ×2 (08:14→17:49)
[2020-11-24] MEDS: FLUCONAZOLE 100 MG TAB PO SCH (08:14)
[2020-11-24] MEDS: METHYLPREDNISOLONE SOD SUCC 40 MG/ML VIAL 1ML IV SCH (08:14)
[2020-11-24] MEDS: OMEPRAZOLE 20 MG CAP PO SCH (08:14)
[2020-11-24] MEDS: TRIMETHOPRIM/SULFAMETHOXAZOLE 160-800 MG TAB PO SCH ×2 (08:14→21:25)
[2020-11-24] MEDS: METOPROLOL TARTRATE 25 MG TAB PO SCH ×2 (08:14→21:25)
[2020-11-24] MEDS: ACETAMINOPHEN 325 MG TAB PO PRN (08:15)
[2020-11-24] MEDS: NOREPINEPHRINE 8 MG/D5W 250 ML 250 ML IV SCH (13:09)
[2020-11-24] MEDS: ENOXAPARIN 30 MG/0.3 ML SYR SC SCH (17:49)
[2020-11-24] MEDS: ZOLPIDEM TARTRATE 5 MG TAB PO SCH (21:25)
[2020-11-25] VITALS (13 sets, daily range): BP systolic 90–158; BP diastolic 51–107
[2020-11-25] MEDS: DEXMEDETOMIDINE 400MCG/NS100ML 100 ML IV PRN (05:08)
[2020-11-25] MEDS: DOCUSATE SODIUM 100 MG CAP PO SCH ×2 (08:01→17:00)
[2020-11-25] MEDS: BUPROPION HCL 150 MG TABCR PO SCH (08:01)
[2020-11-25] MEDS: FLUCONAZOLE 100 MG TAB PO SCH (08:01)
[2020-11-25] MEDS: POLYETHYLENE GLYCOL 3350 17 GM PACK PO SCH (08:01)
[2020-11-25] MEDS: METHYLPREDNISOLONE SOD SUCC 40 MG/ML VIAL 1ML IV SCH (08:01)
[2020-11-25] MEDS: METOPROLOL TARTRATE 25 MG TAB PO SCH ×2 (08:17→22:34)
[2020-11-25] MEDS: TRIMETHOPRIM/SULFAMETHOXAZOLE 160-800 MG TAB PO SCH ×2 (08:26→22:33)
[2020-11-25] MEDS: OMEPRAZOLE 20 MG CAP PO SCH (08:26)
[2020-11-25] MEDS ORDERED: LORAZEPAM INJ 2 MG/ML VIAL IV PRN (10:00)
[2020-11-25] MEDS: NOREPINEPHRINE 8 MG/D5W 250 ML 250 ML IV SCH (14:04)
[2020-11-25] MEDS: ENOXAPARIN 30 MG/0.3 ML SYR SC SCH (17:30)
[2020-11-25] MEDS: ZOLPIDEM TARTRATE 5 MG TAB PO SCH (21:00)
[2020-11-25] MEDS: QUETIAPINE FUMARATE 25 MG TAB PO SCH (22:34)
[2020-11-26] VITALS (7 sets, daily range): BP systolic 99–160; BP diastolic 50–74
[2020-11-26 05:51] LABS: BASOPHILS % 0.1 % (0.0-1.0); EOSINOPHILS % 0.1 % (0.0-6.0); HEMATOCRIT 27.6 % (34.2-44.1); HEMOGLOBIN 8.8 g/dL (12.0-16.0); LYMPHOCYTES # (AUTO) 1.1 (1.0-3.2); LYMPHOCYTES % 8.3 % (18.0-39.1); MEAN CORPUSCULAR HEMOGLOBIN 27.9 pg (28-32); MEAN CORPUSCULAR HGB CONC 31.9 g/dL (31-35); MEAN CORPUSCULAR VOLUME 87.6 fL (81-99); MONOCYTES # (AUTO) 0.8 (0.2-0.8); MONOCYTES % 5.7 % (4.4-11.3); NEUTROPHILS # (AUTO) 11.4 (2.1-6.9); NEUTROPHILS % 85.1 % (38.7-80.0); PLATELET COUNT 446 x10e3/uL (140-360); RED BLOOD COUNT 3.15 x10e6/uL (3.6-5.1); RED CELL DISTRIBUTION WIDTH 13.8 % (11.7-14.4)
[2020-11-26 06:33] LABS: ALBUMIN 1.9 g/dL (3.5-5.0); ALBUMIN/GLOBULIN RATIO 0.8 (0.8-2.0); ANION GAP 12.1 mmol/L (8-16); CALCIUM 7.6 mg/dL (8.4-10.2); CREATININE, SERUM 0.52 mg/dL (0.57-1.11); POTASSIUM 4.1 mmol/L (3.5-5.1)
[2020-11-26] MEDS: OMEPRAZOLE 20 MG CAP PO SCH (09:53)
[2020-11-26] MEDS: FLUCONAZOLE 100 MG TAB PO SCH (09:53)
[2020-11-26] MEDS: TRIMETHOPRIM/SULFAMETHOXAZOLE 160-800 MG TAB PO SCH ×2 (09:53→21:55)
[2020-11-26] MEDS: POLYETHYLENE GLYCOL 3350 17 GM PACK PO SCH (09:53)
[2020-11-26] MEDS: BUPROPION HCL 150 MG TABCR PO SCH (09:53)
[2020-11-26] MEDS: DOCUSATE SODIUM 100 MG CAP PO SCH ×2 (09:53→18:05)
[2020-11-26] MEDS: METOPROLOL TARTRATE 25 MG TAB PO SCH ×2 (09:54→21:55)
[2020-11-26] MEDS: NOREPINEPHRINE 8 MG/D5W 250 ML 250 ML IV SCH (14:15)
[2020-11-26] MEDS: ENOXAPARIN 30 MG/0.3 ML SYR SC SCH (18:05)
[2020-11-26] MEDS: QUETIAPINE FUMARATE 25 MG TAB PO SCH (21:55)
[2020-11-26] MEDS: ACETAMINOPHEN 325 MG TAB PO PRN (21:56)
[2020-11-27] VITALS (7 sets, daily range): BP systolic 100–158; BP diastolic 54–86
[2020-11-27 04:02] LABS: BASOPHILS % 0.1 % (0.0-1.0); EOSINOPHILS # (AUTO) 0.5 (0.0-0.4); EOSINOPHILS % 5.1 % (0.0-6.0); HEMOGLOBIN 8.5 g/dL (12.0-16.0); LYMPHOCYTES % 11.1 % (18.0-39.1); MEAN CORPUSCULAR HGB CONC 32.7 g/dL (31-35); MEAN CORPUSCULAR VOLUME 85.5 fL (81-99); MONOCYTES # (AUTO) 0.4 (0.2-0.8); MONOCYTES % 4.6 % (4.4-11.3); NEUTROPHILS # (AUTO) 7.2 (2.1-6.9); NEUTROPHILS % 78.6 % (38.7-80.0); PLATELET COUNT 400 x10e3/uL (140-360); RED BLOOD COUNT 3.04 x10e6/uL (3.6-5.1); RED CELL DISTRIBUTION WIDTH 13.7 % (11.7-14.4)
[2020-11-27 04:22] LABS: ALBUMIN 1.8 g/dL (3.5-5.0); ALBUMIN/GLOBULIN RATIO 0.8 (0.8-2.0); ANION GAP 10.9 mmol/L (8-16); CALCIUM 7.6 mg/dL (8.4-10.2); CREATININE, SERUM 0.53 mg/dL (0.57-1.11); POTASSIUM 3.9 mmol/L (3.5-5.1)
[2020-11-27] MEDS: TRIMETHOPRIM/SULFAMETHOXAZOLE 160-800 MG TAB PO SCH ×2 (08:33→20:30)
[2020-11-27] MEDS: METOPROLOL TARTRATE 25 MG TAB PO SCH ×2 (08:34→20:31)
[2020-11-27] MEDS: DOCUSATE SODIUM 100 MG CAP PO SCH ×2 (08:34→16:26)
[2020-11-27] MEDS: OMEPRAZOLE 20 MG CAP PO SCH (08:34)
[2020-11-27] MEDS: BUPROPION HCL 150 MG TABCR PO SCH (08:34)
[2020-11-27] MEDS: FLUCONAZOLE 100 MG TAB PO SCH (08:34)
[2020-11-27] MEDS: POLYETHYLENE GLYCOL 3350 17 GM PACK PO SCH (08:34)
[2020-11-27] MEDS: DEXMEDETOMIDINE 400MCG/NS100ML 100 ML IV PRN (10:26)
[2020-11-27] MEDS: NOREPINEPHRINE 8 MG/D5W 250 ML 250 ML IV SCH (13:40)
[2020-11-27] MEDS: ENOXAPARIN 30 MG/0.3 ML SYR SC SCH (16:26)
[2020-11-27] MEDS ORDERED: SODIUM CHLORIDE 0.9% 1000ML 1,000 ML ONE (20:07)
[2020-11-27] MEDS: QUETIAPINE FUMARATE 25 MG TAB PO SCH (20:31)
[2020-11-28] VITALS (9 sets, daily range): BP systolic 89–164; BP diastolic 46–79
[2020-11-28 03:47] LABS: BASOPHILS % 0.1 % (0.0-1.0); EOSINOPHILS # (AUTO) 0.7 (0.0-0.4); EOSINOPHILS % 7.4 % (0.0-6.0); HEMATOCRIT 26.1 % (34.2-44.1); HEMOGLOBIN 8.7 g/dL (12.0-16.0); LYMPHOCYTES # (AUTO) 0.8 (1.0-3.2); LYMPHOCYTES % 8.1 % (18.0-39.1); MEAN CORPUSCULAR HEMOGLOBIN 28.5 pg (28-32); MEAN CORPUSCULAR HGB CONC 33.3 g/dL (31-35); MEAN CORPUSCULAR VOLUME 85.6 fL (81-99); MONOCYTES # (AUTO) 0.4 (0.2-0.8); MONOCYTES % 3.6 % (4.4-11.3); NEUTROPHILS # (AUTO) 7.7 (2.1-6.9); NEUTROPHILS % 80.4 % (38.7-80.0); PLATELET COUNT 389 x10e3/uL (140-360); RED BLOOD COUNT 3.05 x10e6/uL (3.6-5.1); RED CELL DISTRIBUTION WIDTH 13.6 % (11.7-14.4)
[2020-11-28 04:08] LABS: ALBUMIN 1.8 g/dL (3.5-5.0); ALBUMIN/GLOBULIN RATIO 0.8 (0.8-2.0); ANION GAP 11.8 mmol/L (8-16); CALCIUM 7.7 mg/dL (8.4-10.2); CREATININE, SERUM 0.54 mg/dL (0.57-1.11); POTASSIUM 3.8 mmol/L (3.5-5.1)
[2020-11-28] MEDS: FLUCONAZOLE 100 MG TAB PO SCH (08:40)
[2020-11-28] MEDS: DOCUSATE SODIUM 100 MG CAP PO SCH ×2 (08:40→17:00)
[2020-11-28] MEDS: TRIMETHOPRIM/SULFAMETHOXAZOLE 160-800 MG TAB PO SCH ×2 (08:40→20:51)
[2020-11-28] MEDS: POLYETHYLENE GLYCOL 3350 17 GM PACK PO SCH (08:41)
[2020-11-28] MEDS: BUPROPION HCL 150 MG TABCR PO SCH (08:41)
[2020-11-28] MEDS: OMEPRAZOLE 20 MG CAP PO SCH (08:41)
[2020-11-28] MEDS: METOPROLOL TARTRATE 25 MG TAB PO SCH ×2 (08:41→20:51)
[2020-11-28] MEDS: DEXMEDETOMIDINE 400MCG/NS100ML 100 ML IV PRN (11:51)
[2020-11-28] MEDS ORDERED: ZIPRASIDONE 20 MG VIAL IM ONE (13:42)
[2020-11-28] MEDS: NOREPINEPHRINE 8 MG/D5W 250 ML 250 ML IV SCH (14:15)
[2020-11-28] MEDS: ENOXAPARIN 30 MG/0.3 ML SYR SC SCH (17:18)
[2020-11-28] MEDS: ACETAMINOPHEN 325 MG TAB PO PRN (18:23)
[2020-11-28] MEDS: QUETIAPINE FUMARATE 25 MG TAB PO SCH (20:52)
[2020-11-29] VITALS (8 sets, daily range): BP systolic 107–163; BP diastolic 57–103
[2020-11-29] MEDS ORDERED: DEXMEDETOMIDINE 400MCG/NS100ML 100 ML IV ONE (03:34)
[2020-11-29 05:58] LABS: % IRON SATURATION 4 % (15-50); IRON 5 ug/dL (50-170); TOTAL IRON BINDING CAPACITY 137 ug/dL (261-478); TRANSFERRIN 98 mg/dL (180-382)
[2020-11-29] MEDS ORDERED: ZIPRASIDONE 20 MG VIAL IM PRN (07:30)
[2020-11-29 07:45] LABS: HEMATOCRIT 28.1 % (34.2-44.1); MEAN CORPUSCULAR VOLUME 87.3 fL (81-99); PLATELET COUNT 477 x10e3/uL (140-360); RED BLOOD COUNT 3.22 x10e6/uL (3.6-5.1)
[2020-11-29 07:46] LABS: BASOPHILS % 0.2 % (0.0-1.0); EOSINOPHILS # (AUTO) 0.7 (0.0-0.4); EOSINOPHILS % 5.1 % (0.0-6.0); LYMPHOCYTES # (AUTO) 0.6 (1.0-3.2); LYMPHOCYTES % 4.4 % (18.0-39.1); MONOCYTES # (AUTO) 0.5 (0.2-0.8); MONOCYTES % 3.5 % (4.4-11.3); NEUTROPHILS # (AUTO) 11.3 (2.1-6.9); NEUTROPHILS % 86.3 % (38.7-80.0)
[2020-11-29 07:58] LABS: ALBUMIN 1.8 g/dL (3.5-5.0); ALBUMIN/GLOBULIN RATIO 0.6 (0.8-2.0); ANION GAP 13.9 mmol/L (8-16); CALCIUM 8.1 mg/dL (8.4-10.2); CREATININE, SERUM 0.49 mg/dL (0.57-1.11); POTASSIUM 3.9 mmol/L (3.5-5.1)
[2020-11-29] MEDS: DOCUSATE SODIUM 100 MG CAP PO SCH ×2 (09:15→17:30)
[2020-11-29] MEDS: POLYETHYLENE GLYCOL 3350 17 GM PACK PO SCH (09:15)
[2020-11-29] MEDS: TRIMETHOPRIM/SULFAMETHOXAZOLE 160-800 MG TAB PO SCH (09:15)
[2020-11-29] MEDS: BUPROPION HCL 150 MG TABCR PO SCH (09:15)
[2020-11-29] MEDS: OMEPRAZOLE 20 MG CAP PO SCH (09:15)
[2020-11-29] MEDS: FLUCONAZOLE 100 MG TAB PO SCH (09:15)
[2020-11-29] MEDS: METOPROLOL TARTRATE 25 MG TAB PO SCH (09:15)
[2020-11-29] MEDS: DEXMEDETOMIDINE 400MCG/NS100ML 100 ML IV PRN (11:35)
[2020-11-29] MEDS ORDERED: FUROSEMIDE INJ 10 MG/ML 4 ML VIAL IV ONE (12:30)
[2020-11-29] MEDS: NOREPINEPHRINE 8 MG/D5W 250 ML 250 ML IV SCH (14:15)
[2020-11-29] MEDS: ENOXAPARIN 30 MG/0.3 ML SYR SC SCH (17:30)
== END 2020-11-29 20:44 | disposition expired | DRG 871 ==
LOC: ER 16:34 → ERHOLD 21:58 → MED/SURG2 11-11 00:42 → ICU 11-21 04:55 → IMCU 11-25 05:56
PROVIDERS: ADMIT Internal Medicine; ATTEND Internal Medicine
PROC: 02HV33Z Insertion of Infusion Device into Superior Vena Cava, Percutaneous Approach (ICD-10-PCS; principal; 2020-11-21)
PROC: 5A12012 Performance of Cardiac Output, Single, Manual (ICD-10-PCS; 2020-11-21)
PROC: 5A0935A Assistance with Respiratory Ventilation, Less than 24 Consecutive Hours, High Flow/Velocity Cannula (ICD-10-PCS; 2020-11-24)
DX: A41.9 Sepsis, unspecified organism (principal); G93.41 Metabolic encephalopathy; E43 Unspecified severe protein-calorie malnutrition; J96.21 Acute and chronic respiratory failure with hypoxia; I50.33 Acute on chronic diastolic (congestive) heart failure; J18.9 Pneumonia, unspecified organism; Z68.1 Body mass index [BMI] 19.9 or less, adult; E87.1 Hypo-osmolality and hyponatremia; J84.9 Interstitial pulmonary disease, unspecified; I46.2 Cardiac arrest due to underlying cardiac condition; K62.3 Rectal prolapse; I49.1 Atrial premature depolarization; E87.6 Hypokalemia; I27.20 Pulmonary hypertension, unspecified; I49.3 Ventricular premature depolarization; I08.1 Rheumatic disorders of both mitral and tricuspid valves; E83.39 Other disorders of phosphorus metabolism; F32.9 Major depressive disorder, single episode, unspecified; E83.42 Hypomagnesemia; M79.7 Fibromyalgia; D63.8 Anemia in other chronic diseases classified elsewhere; R94.31 Abnormal electrocardiogram [ECG] [EKG]; I11.0 Hypertensive heart disease with heart failure; G47.00 Insomnia, unspecified; Z74.09 Other reduced mobility; Z20.822 Contact with and (suspected) exposure to COVID-19
CPT/HCPCS: 36415; 71045; 71250; 71260; 74230; 80048; 80053; 80061; 80076; 80202; 81001; 82550; 82553; 82607; 82746; 82948; 83036; 83540; 83735; 84100; 84443; 84466; 84484; 85025; 85045; 85651; 86039; 86140; 86431; 86706; 86738; 87340; 87449; 93005; 93306; 94640; 96360; 96361; 97139; 99251; 99285; J0360; J0456; J0692; J1650; J1940; J2060; J2920; J2930; J3475; J3480; J3486; J7030; J7040; J7050; Q9967; U0002